=== PATIENT | female | born 1995 | race Caucasian/White ===

== ENCOUNTER 2016-05-01 00:30 | Emergency (ER) | payer OTHER ==
[2016-05-01 00:43] VITALS: RESP 16; TEMP 97.9
--- NOTE | 2016-05-01 01:57 | EDPHY ---
H & P Stated Complaint: EtOH HPI/ROS: Chief complaint: Alcohol intoxication HPI: 20 year old female found by police intoxicated and vomiting. Patient has been drinking multiple shots this evening. Did not sustain any falls or sustain any trauma. Patient is unable to provide any further history given her intoxication. ROS: Unobtainable secondary to patient's intoxication Past medical history: Denies Medications: Denies Allergies: No known drug allergies Physical exam: Gen: Somnolent, arousable to noxious stimuli, maintaining his airway, smells of alcohol and emesis HEENT: Nose: no rhinorrhea Eyes: PERRLA, EOMI Mouth: Moist mucosa Neck: Supple, no JVD Chest: nontender, lungs clear to auscultation Heart: S1, S2 normal, no murmur Abd: Soft, non-tender, no guarding Back: no CVA tenderness, no midline tenderness Ext: no edema, non-tender Skin: no rash Neuro: CN II-XII intact, Sensation grossly intact, Strength 5/5 in bilateral upper and lower extremities - Personal History LMP (Females 10-55): Unknown Current Tetanus/Diphtheria Vaccine: Unsure Current Tetanus Diphtheria and Acellular Pertussis (TDAP): Unsure - Medical/Surgical History Other PMH: unknown - Social History Smoking Status: Unknown if ever smoked Constitutional: Initial Vital Signs Temperature (C) 36.6 C 05/01/16 00:41 Heart Rate 74 05/01/16 00:41 Respiratory Rate 16 05/01/16 00:41 Blood Pressure 114/74 05/01/16 00:41 O2 Sat (%) 96 05/01/16 00:41 O2 Delivery Mode Room Air Allergies/Adverse Reactions: No Known Allergies Allergy (Unverified 05/01/16 01:59) Home Medications: Medication Instructions Recorded Bcp 05/01/16 Effexor 05/01/16 Medical Decision Making ED Course/Re-evaluation: Patient is now awake and appropriate. Ambulating unassisted to the bathroom. No current complaints. Departure - Departure Disposition: Home, Routine, Self-Care Clinical Impression: Alcoholic intoxication Condition: Good Instructions: Alcohol Intoxication (ED) Additional Instructions: Please avoid binge drinking alcohol. Return to the emergency depart for increasing abdominal pain, nausea, uncontrolled vomiting, fevers, chills, or any other concerns. Referrals: Patient,NotPresent [Unknown] - As per Instructions Dick Yarbrough MD [Medical Doctor] - As per Instructions
[2016-05-01 03:02] VITALS: BP 113/82; PULSE 90; O2SAT 98
== END 2016-05-01 03:02 | disposition home or self-care (01) ==
DX: F10.129 Alcohol abuse with intoxication, unspecified (principal)